=== PATIENT | female | born 1980 | race Caucasian/White ===

== ENCOUNTER 2017-03-04 18:59 | Emergency (ER) | payer BC ==
[~2017-03-04] VITALS: Ht 172.7 cm; Wt 75.0 kg
[~2017-03-04 18:59] MED LIST: IBUP600 PO; PRENTAB72 PO
[2017-03-04 19:01] VITALS: BP 158/79; PULSE 80; RESP 15; TEMP 98.7; O2SAT 100
[2017-03-04 19:17] VITALS: BP 147/65; PULSE 95; RESP 16; O2SAT 100
[2017-03-04] MEDS ORDERED: SODIUM CHLORIDE 0.9% FLUSH 10 ML FLUSH IVF PRN (19:30)
[2017-03-04 19:49] VITALS: RESP 16
[2017-03-04 20:02] LABS: AUTOMATED NEUTROPHIL # 4.6 TH/MM3 (1.8-7.7); BASOPHIL % 0.3 % (0.0-2.0); EOSINOPHIL # 0.2 TH/MM3 (0-0.4); EOSINOPHIL % 2.5 % (0.0-4.0); HEMATOCRIT 35.7 % (35.0-46.0); HEMO FLAGS DIFF FINAL; LYMPH % 31.9 % (9.0-44.0); LYMPHOCYTE # 2.5 TH/MM3 (1.0-4.8); MEAN CELL VOLUME 86.6 FL (80.0-100.0); MEAN CORPUSCULAR HEMOGLOBIN 30.3 PG (27.0-34.0); MONO % 5.5 % (0.0-8.0); NEUT % 59.8 % (16.0-70.0); PLATELET COUNT 321 TH/MM3 (150-450); RED BLOOD COUNT 4.13 MIL/MM3 (4.00-5.30); RED CELL DISTRIBUTION WIDTH 13.4 % (11.6-17.2); WHITE BLOOD COUNT 7.8 TH/MM3 (4.0-11.0)
[2017-03-04 20:07] LABS: BICARBONATE 28.7 MEQ/L (21.0-32.0); POTASSIUM 3.6 MEQ/L (3.5-5.1)
--- NOTE | 2017-03-04 20:25 | RADRPT ---
EXAM DATE/TIME: 03/04/2017 19:55 [facility] COMPARISON: No previous studies available for comparison. INDICATIONS : Blurred vision, left upper extremity weakness. MEDICAL HISTORY : None. SURGICAL HISTORY : None. ENCOUNTER: Initial ACUITY: 1 day PAIN SCORE: 0/10 LOCATION: cranial TECHNIQUE: Multiplanar, multisequence MRI of the brain was performed without contrast. FINDINGS: CEREBRUM: The ventricles are normal for age. No evidence of midline shift, mass lesion, hemorrhage or acute in farction. No extraaxial fluid collections are seen. The pituitary gland and suprasellar cistern are normal in configuration. WHITE MATTER: No significant signal abnormalities are seen in the white matter. POSTERIOR FOSSA: The cerebellum and brainstem are intact. The 4th ventricle is midline. The cerebellopontine angle is unremarkable. The cerebellar tonsils are normal in position. DIFFUSION IMAGING: No focal areas of restricted diffusion are seen. No evidence of acute infarction. EXTRACRANIAL: There is mucoperiosteal thickening of the visualized paranasal sinuses, mostly the maxillary air cell s. CONCLUSION: No infarct or other acute intracranial abnormality. Sinus disease. Luis Fernando Guillen MD on March 04, 2017 at 20:23 Board Certified Radiologist. This report was verified electronically.
--- NOTE | 2017-03-04 20:29 | PD ---
HPI Chief Complaint: Neuro Symptoms/ Deficits Time Seen by Provider: 19:16 Travel History International Travel<30 days: No Contact w/Intl Traveler<30days: No Traveled to known affect area: No History of Present Illness HPI Patient is a 36-year-old otherwise healthy female who presents the emergency department with complaint of visual field blurriness. Patient states that approximately one week ago she had a spell of blurry vision, flashing lights in her right eye only. She describes this primarily in the inferior and lateral visual field but notable throughout. She also stated that the right side of her face felt somewhat numb as did her right hand. This lasted for approximately 2 hours and patient then went to bed and woke up the next morning feeling normally. Patient had recurrent symptoms approximately 1 hour prior to arrival. She denies any headache with this, states that she feels "foggy" and disoriented. Patient denies any history of CVA/TIA, or risk factors for this. Patient does have a history of migraine headaches, but states that she's not had one in a while. PFSH Past Medical History Medical History: Denies Significant Hx Immunizations Current: Yes Tetanus Vaccination: < 5 Years Influenza Vaccination: No ?: Unknown Past Surgical History Surgical History: No Previous Surgery Social History Alcohol Use: Yes (socially) Tobacco Use: No Substance Use: No Allergies-Medications (Allergen,Severity, Reaction): Coded Allergies: Sulfa (Verified Allergy, Severe, 03/04/17) Reported Meds & Prescriptions Reported Meds & Active Scripts Active Review of Systems Except as stated in HPI: all other systems reviewed are Neg Physical Exam Narrative GENERAL: Well-appearing female tearful but in no acute distress SKIN: Focused skin assessment warm/dry. HEAD: Normocephalic. EYES: Pupils equal and round. EOMI. No after pupillary defect. I'm unable to appreciate any visual field loss. Funduscopic examination and nondilated eye is difficult but no gross abnormalities. No scleral icterus. No injection or drainage. The eye is white and quiet. ENT: No nasal bleeding or discharge. Mucous membranes pink and moist. NECK: Supple CARDIOVASCULAR: Regular rate and rhythm. No murmur appreciated. RESPIRATORY: No accessory muscle use. Clear to auscultation. Breath sounds equal bilaterally. MUSCULOSKELETAL: No obvious deformities. No edema. NEUROLOGICAL: Awake and alert. Answers questions and follows commands appropriately. No visual field loss. No obvious cranial nerve deficits. Motor grossly within normal limits. Normal speech. Sensation intact without subjective decreased sensation in the right face her right hand at this time. PSYCHIATRIC: Tearful and anxious Data Data Last Documented VS Vital Signs Date Time Temp Pulse Resp B/P Pulse Ox O2 Delivery O2 Flow Rate FiO2 03/04/17 19:49 16 03/04/17 19:17 95 147/65 100 03/04/17 19:01 98.7 Room Air Orders Complete Blood Count With Diff (03/04/17 19:23) Basic Metabolic Panel (Bmp) (03/04/17 19:23) Ecg Monitoring (03/04/17 19:23) Iv Access Insert/Monitor (03/04/17 19:23) Oximetry (03/04/17 19:23) Sodium Chloride 0.9% Flush (Ns Flush) (03/04/17 19:30) Mra Brain W/O Contrast (Cow) (03/04/17 ) Mri Brain W/O Contrast (03/04/17 ) Labs Laboratory Tests Test 03/04/17 19:40 White Blood Count 7.8 TH/MM3 Red Blood Count 4.13 MIL/MM3 Hemoglobin 12.5 GM/DL Hematocrit 35.7 % Mean Corpuscular Volume 86.6 FL Mean Corpuscular Hemoglobin 30.3 PG Mean Corpuscular Hemoglobin 35.0 % Concent Red Cell Distribution Width 13.4 % Platelet Count 321 TH/MM3 Mean Platelet Volume 6.7 FL Neutrophils (%) (Auto) 59.8 % Lymphocytes (%) (Auto) 31.9 % Monocytes (%) (Auto) 5.5 % Eosinophils (%) (Auto) 2.5 % Basophils (%) (Auto) 0.3 % Neutrophils # (Auto) 4.6 TH/MM3 Lymphocytes # (Auto) 2.5 TH/MM3 Monocytes # (Auto) 0.4 TH/MM3 Eosinophils # (Auto) 0.2 TH/MM3 Basophils # (Auto) 0.0 TH/MM3 CBC Comment DIFF FINAL Differential Comment Sodium Level 137 MEQ/L Potassium Level 3.6 MEQ/L Chloride Level 102 MEQ/L Carbon Dioxide Level 28.7 MEQ/L Anion Gap 6 MEQ/L Blood Urea Nitrogen 19 MG/DL Creatinine 0.85 MG/DL Estimat Glomerular Filtration 77 ML/MIN Rate Random Glucose 107 MG/DL Calcium Level 8.7 MG/DL [facility] Medical Decision Making Medical Screen Exam Complete: Yes Emergency Medical Condition: Yes Medical Record Reviewed: Yes Differential Diagnosis 36-year-old healthy female here with complaint of right sided blurry vision, right sided facial and right hand numbness times one hour. Similar episode one week ago. Differential includes atypical migraine, migraine aura, CVA, TIA, intracranial mass lesion, anxiety. Narrative Course Patient placed on monitor, IV established and blood obtained. CBC, BMP were unremarkable. MRI/MRA of the brain unremarkable. Patient reassured and given outpatient neurology follow-up. Diagnosis Primary Impression: Visual aura Referrals: Harry Suarez PhD call for appointment Additional Instructions: Follow-up with neurologist as discussed. Med/Other Pt SpecificInfo: No Change to Meds Disposition: 01 DISCHARGE HOME Condition: Stable Natividad Dunbar MD Mar 04, 2017 20:29
--- NOTE | 2017-03-04 20:35 | RADRPT ---
EXAM DATE/TIME: 03/04/2017 19:55 [facility] COMPARISON: No previous studies available for comparison. INDICATIONS : Blurred vision, left upper extremity weakness. MEDICAL HISTORY : None. SURGICAL HISTORY : None. ENCOUNTER: Initial ACUITY: 1 day PAIN SCORE: 0/10 LOCATION: cranial Please note a normal MRA of the brain does not entirely exclude the possibility of a small aneurysm, nor the possibility of distal intracranial vessel disease. TECHNIQUE: 3D time of flight MRA was performed. Source images, multiplanar STS MIP, and 3D volume MIP reconstru ctions were reviewed. FINDINGS: There is excellent visualization of the major intracranial arteries out to the second-order branch ve ssels. There is no evidence for aneurysm, vessel truncation or stenosis, and no evidence for vascula r malformation. CONCLUSION: Normal examination. Luis Fernando Guillen MD on March 04, 2017 at 20:33 Board Certified Radiologist. This report was verified electronically.
== END 2017-03-04 21:14 | disposition home or self-care (01) ==
LOC: NEPE 18:59
DX: H53.8 Other visual disturbances (principal)
CPT/HCPCS: 70544; 70551; 80048; 85025

== ENCOUNTER → 2017-03-29 | Outpatient (CLI) | payer BC ==
--- NOTE | 2017-03-29 22:27 | MG ---
cc: RD HYMAN M.D. Lab No: Date: 03/29/2017 Age: Sex: F Race: REQUESTING PHYSICIAN Dr. Archer. EEG was obtained on this 37-year-old patient who is awake and asleep. History of visual difficulty right eye and garbled speech. DESCRIPTION This EEG shows low and mid amplitude alpha rhythms posteriorly. There are beta rhythms diffusely. Interestingly there is some occasional left temporal sharp discharges / waves that do not appear to be physiological benign phenomenon and there is also some associated intermittent left temporal slowing. The patient enters sleep stage I and II. There is plenty of sleepy spindles and K complexes. Photic stimulation showed some bilateral driving response. Hyperventilation was unremarkable. INTERPRETATION This EEG shows some intermittent left temporal slowing with associated sharp waves / discharges which are not definitive though they are suspiciously of an epileptiform appearance. The imaging correlation also important along with the clinical correlation. MD KOFI Bean/KK /8:44 PM /10:13 PM
== END ==
LOC: HEEG 09:23
PROVIDERS: ATTEND Psychiatry & Neurology Neurology
DX: R56.9 Unspecified convulsions (principal)
CPT/HCPCS: 95819